=== PATIENT | male | born 1970 | race Caucasian/White ===

== ENCOUNTER 2018-01-22 09:33 | Emergency (ER) | payer SELFPAY ==
[2018-01-22] MEDS ORDERED: Nitroglycerin 2% Ointment 1 INCH/1 GM Packet ONE (10:10)
[2018-01-22 10:15] LABS: #Basophils 0.1 thou/uL (0.0-0.2); #Eosinphils 0.2 thou/uL (0.0-0.7); #Lymphocytes 1.8 thou/uL (1.20-3.40); #Monocytes 0.5 thou/uL (0.11-0.59); #Neutrophils 3.4 thou/uL (1.40-6.50); %Eosinophils 2.6 % (0.0-10.0); %Lymphocytes 30.7 % (21.0-51.0); %Monocytes 7.8 % (0.0-10.0); %Neutrophils 57.9 % (42.0-75.0); Hemoglobin 17.1 g/dL (14.0-18.0); Mean Corpuscular HGB CONC 35.1 g/dL (32.0-36.0); Mean Corpuscular Hemoglobin 33.1 pg (27.0-31.0); Mean Corpuscular Volume 94.4 fl (80.0-94.0); Mean Platelet Volume 6.7 fL (7.4-10.4); Platelet Count 254 thou/uL (130-400); RBC Distribution Width 12.2 % (11.5-14.5); Red Blood Cell (RBC) Count 5.17 mill/uL (4.70-6.10); White Blood Cell (WBC) Count 5.8 thou/uL (4.8-10.8)
--- NOTE | 2018-01-22 10:20 | RAD ---
PORTABLE CHEST: History: Hypotension. FINDINGS: Lungs are clear. Heart and mediastinum are unremarkable. Vascular markings are normal. IMPRESSION: Unremarkable portable chest. POS: [id number]
[2018-01-22 10:28] LABS: ALT (SGPT) 63 U/L (8-55); AST (SGOT) 43 U/L (5-34); Albumin 4.5 g/dL (3.5-5.0); Alkaline Phosphatase 45 U/L (40-150); Anion Gap 12 mmol/L (10-20); BUN (Urea Nitrogen) 15 mg/dL (8.9-20.6); Bilirubin, Total 0.6 mg/dL (0.2-1.2); Calc. Creatinine Clearance 0 mL/min (70-130); Calcium 9.7 mg/dL (7.8-10.44); Carbon Dioxide 24 mmol/L (22-29); Chloride 106 mmol/L (98-107); Estimated GFR-MDRD 77; Globulin 2.7 g/dL (2.4-3.5); Glucose 110 mg/dL (70-105); Potassium 4.2 mmol/L (3.5-5.1); Protein, Total 7.2 g/dL (6.0-8.3); Sodium 138 mmol/L (136-145)
[2018-01-22 10:31] LABS: CKMB 4.7 ng/mL (0-6.6); Troponin I Less than 0.010 ng/mL (< 0.028)
[2018-01-22 11:28] LABS: CK (CPK) 284 U/L (30-200); Lipase 61 U/L (8-78)
[2018-01-22] MEDS ORDERED: Acetaminophen 500 MG TAB ONE (11:38)
== END 2018-01-22 12:53 | disposition home or self-care (01) ==
LOC: ERS 09:33
DX: I10 Essential (primary) hypertension (principal); R53.1 Weakness; M54.2 Cervicalgia; F41.9 Anxiety disorder, unspecified; Z79.899 Other long term (current) drug therapy; Z79.82 Long term (current) use of aspirin
CPT/HCPCS: 36415; 71045; 80053; 82553; 83690; 84484; 85025; 85379; 93005

== ENCOUNTER 2024-02-14 05:50 | Day surgery (SDC) | payer OTHER ==
[2024-02-13 10:45] VITALS: BMI 28.1
[2024-02-14] MEDS ORDERED: Bupivacaine 0.25% HCL 30 ML VIAL ONE (06:38)
[2024-02-14] MEDS ORDERED: EPINEPHrine 1 MG/ML VIAL ONE (06:38)
[2024-02-14] MEDS ORDERED: Sodium Chloride 0.9% 100 ML ONE (07:14)
[2024-02-14] MEDS ORDERED: CEFAZOLIN 2 GM VIAL ONE (07:14)
[2024-02-14] MEDS ORDERED: Lidocaine 2% PF 5 ML VIAL ONE (07:16)
[2024-02-14] MEDS ORDERED: PROPOFOL 20 ML ONE (07:16)
[2024-02-14] MEDS ORDERED: fentaNYL PF 100 MCG/2 ML SYRINGE ONE (07:20)
[2024-02-14] MEDS ORDERED: ePHEDrine Sulfate 50 MG/10 ML VIAL ONE (07:33)
[2024-02-14] MEDS ORDERED: Ketorolac Tromethamine 30 MG (1 mL) VIAL ONE (07:34)
[2024-02-14] MEDS ORDERED: Ondansetron PF 4 MG/2 ML Vial ONE (07:34)
[2024-02-14] MEDS ORDERED: Dexamethasone 20 MG/5 ML VIAL ONE (07:34)
[2024-02-14] MEDS ORDERED: Dexmedetomidine 200 MCG/2 ML VIAL ONE (07:35)
[2024-02-14] MEDS ORDERED: Glycopyrrolate 0.2 MG/ML 5 ML SYRINGE ONE (07:42)
== END 2024-02-14 09:58 | disposition home or self-care (01) ==
LOC: SDC 05:50
PROVIDERS: ATTEND Orthopaedic Surgery Sports Medicine
PROC: 0SCC4ZZ Extirpation of Matter from Right Knee Joint, Percutaneous Endoscopic Approach (ICD-10-PCS; principal; 2024-02-14)
DX: M23.41 Loose body in knee, right knee (principal); M23.221 Derangement of posterior horn of medial meniscus due to old tear or injury, right knee; F41.9 Anxiety disorder, unspecified; F32.A Depression, unspecified; E78.5 Hyperlipidemia, unspecified; Z79.899 Other long term (current) drug therapy
CPT/HCPCS: 93005; 93010; J0171; J0665; J1100; J1885; J2001; J2405; J2704; J3490